=== PATIENT | male | born 1940 | race Caucasian/White ===

== ENCOUNTER 2016-07-12 09:49 | Emergency (ER) | payer OTHER ==
[~2016-07-12] VITALS: Ht 172.7 cm; Wt 125.0 kg
[~2016-07-12 09:49] MED LIST: DOXYCYCLINE 10100 MG PO; FORT1000TA PO; GLUCOTROL 5M5 MG/TAB PO; LEVAQUIN 750MG750 M1 PO; NORCO 325 MG-51 TAB PO; PRAVACHOL 20MG20 MG PO; PRINIVIL40 MG PO; VERELAN180 MG PO
[2016-07-12 12:49] VITALS: BP 112/67; PULSE 73
== END 2016-07-12 12:52 | disposition home or self-care (01) ==
LOC: COL.ER 09:49
DX: S16.1XXA Strain of muscle, fascia and tendon at neck level, initial encounter (principal); V43.52XA Car driver injured in collision with other type car in traffic accident, initial encounter; Y92.9 Unspecified place or not applicable

== ENCOUNTER 2016-08-03 09:47 | Outpatient (RCR) | payer OTHER | END 2016-08-13 13:35 | LOC: WSOH 09:47 | DX: M54.5 Low back pain (principal); M51.36 Other intervertebral disc degeneration, lumbar region; M50.30 Other cervical disc degeneration, unspecified cervical region; V73.0 Driver of bus injured in collision with car, pick-up truck or van in nontraffic accident; Y99.0 Civilian activity done for income or pay ==

== ENCOUNTER 2016-11-16 01:22 | Emergency (ER) | payer MEDICARE, BC ==
[~2016-11-16] VITALS: Ht 177.8 cm; Wt 125.4 kg
[~2016-11-16 01:22] MED LIST changes: -ACTOS 15MG TAB15 MG PO; -GLUCOPHAGE1000 MG PO; -GLUCOTROL10 MG PO; -LEVAQUIN 5500 MG/TA1 PO
[2016-11-16 01:25] VITALS: TEMP 97.6
[2016-11-16] MEDS ORDERED: GLUCOPHAGE1000 MG PO (01:32)
[2016-11-16] MEDS ORDERED: GLUCOTROL10 MG PO (01:33)
[2016-11-16] MEDS ORDERED: ACTOS 15MG TAB15 MG PO (01:34)
[2016-11-16 02:23] LABS: BASO # 0.1 (0.0-0.2); BASO % 0.7 % (0.0-2.0); EOS # 0.2 (0.0-0.7); EOS % 1.9 % (0-4.0); GRAN # 6.1 (1.4-6.5); GRAN % 71.1 % (42.2-75.2); HEMATOCRIT 40.9 % (42.0-52.0); HEMOGLOBIN 12.9 g/dl (13.5-18.0); LYMPH # 1.6 (1.2-3.4); MEAN CELL VOLUME 83 fl (80.0-100.0); MEAN CORPUSCULAR HEMOGLOBIN 26 pg (27.0-31.0); MEAN CORPUSCULAR HGB CONC 32 g/dl (33.0-37.0); MEAN PLATELET VOLUME 10.1 fl (7.4-10.4); MONO # 0.6 (0.1-0.6); MONO % 7.1 % (1.7-9.3); PLATELET COUNT 141 K/mm3 (130-400); RED BLOOD COUNT 4.91 M/mm3 (4.20-5.60); REDCELL DISTRIBUTION WIDTH-CV 15.6 % (11.5-14.5); WHITE BLOOD COUNT 8.6 K/mm3 (4.8-10.8)
[2016-11-16 02:40] LABS: INR 1.1 (0.8-3.0); PROTHROMBIN TIME 12.2 SECONDS (9.7-12.8)
[2016-11-16 02:45] LABS: ADJUSTED CALCIUM 9.6 mg/dL (8.4-10.2); CALCIUM 9.6 mg/dL (8.4-10.2); CREATININE, serum 0.86 mg/dL (0.66-1.25); POTASSIUM 4.7 mmol/L (3.4-5.0); TOTAL PROTEIN 7.9 gm/dL (6.4-8.2)
[2016-11-16] MEDS ORDERED: LEVAQUIN 5500 MG/TA1 PO (02:50)
[2016-11-16] MEDS ORDERED: NORCO 325 MG-51 TAB PO (02:50)
[2016-11-16 03:38] VITALS: BP 130/72; PULSE 82
== END 2016-11-16 03:38 | disposition home or self-care (01) ==
LOC: COL.ER 01:22
PROVIDERS: Nurse Practitioner
DX: L03.116 Cellulitis of left lower limb (principal); E11.9 Type 2 diabetes mellitus without complications; I10 Essential (primary) hypertension; Z79.84 Long term (current) use of oral hypoglycemic drugs; Z90.89 Acquired absence of other organs; Z98.890 Other specified postprocedural states

== ENCOUNTER → 2016-11-16 | Outpatient (CLI) | payer MEDICARE, BC ==
[~2016-11-16] MED LIST changes: +ACTOS 15MG TAB15 MG PO; +GLUCOPHAGE1000 MG PO; +GLUCOTROL10 MG PO; +LEVAQUIN 5500 MG/TA1 PO
== END ==
LOC: COL.VAS 12:54
DX: Z01.89 Encounter for other specified special examinations (principal)

== ENCOUNTER 2017-04-10 13:20 | Emergency (ER) | payer BC, MEDICARE ==
[~2017-04-10] VITALS: Ht 172.7 cm; Wt 127.3 kg
[~2017-04-10 13:20] MED LIST changes: +ACTOS 15MG TAB15 MG PO; +GLUCOPHAGE1000 MG PO; +GLUCOTROL10 MG PO; +LEVAQUIN 5500 MG/TA1 PO
[2017-04-10 13:24] VITALS: TEMP 99
[2017-04-10] MEDS ORDERED: GLUCOTROL10 MG PO (14:09)
[2017-04-10] MEDS ORDERED: ACTOS 15MG TAB15 MG PO (14:10)
[2017-04-10] MEDS ORDERED: GLUCOPHAGE1000 MG PO (14:10)
[2017-04-10] MEDS ORDERED: VERELAN120 MG PO (14:12)
[2017-04-10] MEDS ORDERED: ZESTRIL40 MG PO (14:14)
[2017-04-10 14:34] LABS: INFLUENZA A NEGATIVE; INFLUENZA B NEGATIVE
[2017-04-10] MEDS ORDERED: LEVAQUIN 750MG750 M1 PO (15:10)
[2017-04-10 16:00] VITALS: BP 124/57; PULSE 93
== END 2017-04-10 16:01 | disposition home or self-care (01) ==
LOC: COL.ER 13:20
PROVIDERS: Emergency Medicine
DX: J18.9 Pneumonia, unspecified organism (principal); I10 Essential (primary) hypertension; E11.9 Type 2 diabetes mellitus without complications; Z98.890 Other specified postprocedural states; Z90.89 Acquired absence of other organs; Z79.84 Long term (current) use of oral hypoglycemic drugs

== ENCOUNTER → 2017-05-10 | Outpatient (CLI) | payer MEDICARE, BC ==
[~2017-05-10] MED LIST changes: +VERELAN120 MG PO; +ZESTRIL40 MG PO
== END ==
LOC: COL.RAD 05-04 09:45
DX: M16.11 Unilateral primary osteoarthritis, right hip (principal)
CPT/HCPCS: J3301; Q9967

== ENCOUNTER 2017-06-08 15:58 | Inpatient (IN) | payer MEDICARE, BC ==
[~2017-06-08] VITALS: Ht 172.7 cm; Wt 125.0 kg
[2017-09-06] VITALS (10 sets, daily range): BP systolic 93–126; BP diastolic 44–64; PULSE 65–86; TEMP 97.7–98.4
[2017-09-07 00:38] VITALS: BP 116/64; PULSE 75; TEMP 98.4
[2017-09-07 03:45] VITALS: BP 114/54; PULSE 78; TEMP 98.4
[2017-09-07 06:59] LABS: HEMOGLOBIN 10.8 g/dl (13.5-18.0)
[2017-09-07 07:02] LABS: HEMATOCRIT 35.1 % (42.0-52.0)
[2017-09-07 08:03] VITALS: BP 118/61; PULSE 71; TEMP 98
[2017-09-07 11:23] VITALS: BP 123/68; PULSE 77; TEMP 98.3
[2017-09-07 15:38] VITALS: BP 111/65; PULSE 85; TEMP 98.1
[2017-09-07 19:19] VITALS: BP 138/39; PULSE 91; TEMP 98.4
[2017-09-08 04:35] VITALS: BP 145/64; PULSE 79; TEMP 98.2
[2017-09-08 08:17] VITALS: BP 114/49; PULSE 81; TEMP 97.7
[2017-09-08 11:45] VITALS: BP 107/60; PULSE 70; TEMP 97.7
[2017-09-08] MEDS ORDERED: XARELTO10 MG PO (14:43)
[2017-09-08] MEDS ORDERED: NORCO 325 MG-7.1 TAB PO (14:43)
[2017-09-08] MEDS ORDERED: OXY IR5 MG PO (14:44)
[2017-09-08] MEDS ORDERED: TYLENOL 500MG500 MG PO (14:45)
[2017-09-08 16:06] VITALS: BP 96/48; PULSE 70; TEMP 97.7
[2017-09-08 20:10] VITALS: BP 133/46; PULSE 80; TEMP 97.9
[2017-09-09 04:58] VITALS: BP 112/44; PULSE 92; TEMP 98.2
[2017-09-09 08:54] VITALS: BP 106/53; PULSE 106; TEMP 98.6
== END 2017-09-09 10:43 | DRG 470 ==
LOC: JCC 09-06 05:07
PROVIDERS: Orthopaedic Surgery
PROC: 0SRD0J9 Replacement of Left Knee Joint with Synthetic Substitute, Cemented, Open Approach (ICD-10-PCS; principal; 2017-09-06 07:30)
DX: M17.12 Unilateral primary osteoarthritis, left knee (principal)
CPT/HCPCS: A4314; A9284; C1713; C1776; J0690; J2250; J2270; J2704; J3260; J7030

== ENCOUNTER → 2018-04-21 | Outpatient (CLI) | payer MEDICARE, BC ==
[~2018-04-21] MED LIST changes: +NORCO 325 MG-7.1 TAB PO; +OXY IR5 MG PO; +TYLENOL 500MG500 MG PO; +XARELTO10 MG PO
== END ==
LOC: COL.VAS 12:30
DX: R60.0 Localized edema (principal)

== ENCOUNTER → 2018-06-22 | Outpatient (CLI) | payer MEDICARE, BC | LOC: COL.RAD 12:19 | DX: M47.26 Other spondylosis with radiculopathy, lumbar region (principal); M48.061 Spinal stenosis, lumbar region without neurogenic claudication; M43.17 Spondylolisthesis, lumbosacral region; N28.1 Cyst of kidney, acquired ==